=== PATIENT | female | born 1955 | race Caucasian/White ===

== ENCOUNTER 2017-01-12 06:37 | Day surgery (SDC) | payer MEDICARE, BC ==
--- NOTE | ~2017-01-12 | EGD ---
EGD REPORT [facility] [address] [address] NAME: ALANA GRANADOS : 53 STATUS : REG [facility] [place] PAT#: [id number] AGE: 61 ADM/REG DATE : 01/12/17 MR#: [id number] REPORT SERV DATE: 01/12/17 DICTATED BY: CARMELLA REAL DATE: 01/12/17 REPORT STATUS : Draft TRANSCRIBED BY: [facility] DATE: 01/12/17 Endoscopy Center Patient Name: Alana Granados Date of : 1955 Attending MD: CARMELLA REAL MD Procedure Date No Time: 01/12/2017 Procedure: Upper GI endoscopy Indications: Dysphagia, Follow-up of short segment Dougherty's esophagus; Aciphex 20mg bid. Patient Profile: Informed consent was obtained from the patient by me prior to the procedure. Risks, benefits, and alternatives were discussed including the risk of bleeding, perforation, infection, reaction to medicine, missed lesion, and cardiopulmonary complications. Referring MD: GIOVANNI SANTOS MD Medicines: Monitored Anesthesia Care Complications: No immediate complications. Procedure: Pre-Anesthesia Assessment: - ASA Grade Assessment: III - A patient with severe systemic disease. After obtaining informed consent, the endoscope was passed under direct vision. Throughout the procedure, the patient's blood pressure, pulse, and oxygen saturations were monitored continuously. The GIF [id number] was introduced through the mouth, and advanced to the second part of duodenum. The endoscope was withdrawn with careful examination all mucosal surfaces including retroflexion stomach. The upper GI endoscopy was accomplished without difficulty. The patient tolerated the procedure well. Findings: The examined duodenum was normal. The entire examined stomach was normal. There were esophageal mucosal changes secondary to established short-segment Dougherty's disease present at the gastroesophageal junction, no nodules or esophagitis. The maximum longitudinal extent of these mucosal changes was 1 cm in length two tongues. Biopsies were taken with a cold forceps for histology. The examined esophagus was normal. Biopsies were taken with a cold forceps for histology from mid and upper. 48F Savary dilation performed over guidewire held in antrum; minimal resistance to dilation; endoscopic visualization afterwards no mucosal breaks. Impression: - Normal examined duodenum. EGD REPORT [address] [address] NAME: ALANA GRANADOS : 53 STATUS : REG [facility]#: [id number] AGE: 61 ADM/REG DATE : 01/12/17 MR#: [id number] REPORT SERV DATE: 01/12/17 DICTATED BY: CARMELLA REAL DATE: 01/12/17 REPORT STATUS : Draft TRANSCRIBED BY: [employer] DATE: 01/12/17 - Normal stomach. - Esophageal mucosal changes secondary to established short-segment Dougherty's disease. Biopsied. - Normal esophagus. Biopsied. Dilated. Recommendation: - Patient has a contact number available for emergencies. The signs and symptoms of potential delayed complications were discussed with the patient. Return to normal activities tomorrow. Written discharge instructions were provided to the patient. - Regular diet. - Await pathology results. - Continue present medications, taper Aciphex to once daily prn. - Given dicyclomine for gut spasm. - Schd f/u visit 3 months. Procedure Code(s): --- Professional --- 92658, Esophagogastroduodenoscopy, flexible, transoral; with insertion of guide wire followed by passage of dilator(s) through esophagus over guide wire 10591, Esophagogastroduodenoscopy, flexible, transoral; with biopsy, single or multiple Diagnosis Code(s): --- Professional --- K22.70, Dougherty's esophagus without dysplasia R13.10, Dysphagia, unspecified CPT copyright 2013 [employer]. All rights reserved. The codes documented in this report are preliminary and upon ammunition assembly ii laborer review may be revised to meet current compliance requirements. CARMELLA REAL MD 01/12/2017 8:33 AM This report has been signed electronically. Number of Addenda: 0 Note Initiated On: 01/12/2017 8:15 AM Scope Withdrawal Time 0 hours 0 minutes 0 seconds [address] [id number]
[~2017-01-12 06:37] MED LIST: ACIPHEX PO; AGGRENOX PO; CELEXA40 MG PO; CLARIT10 PO; CRESTOR20 MG PO; GLUCOPHAGE1000 MG PO; MIRAPEX125 PO; NORV5 PO; ONGLYZA5 MG PO; P125 PO; PLAVIX PO; REQUIP5 PO; VALTREX5 PO; WELCHOL625 MG PO; ZESTRIL30 MG PO
== END 2017-01-12 23:59 | disposition home or self-care (01) ==
LOC: DMU 06:37
PROVIDERS: Internal Medicine Gastroenterology
PROC: 0D758ZZ Dilation of Esophagus, Via Natural or Artificial Opening Endoscopic (ICD-10-PCS; 2017-01-12)
PROC: 0DB48ZX Excision of Esophagogastric Junction, Via Natural or Artificial Opening Endoscopic, Diagnostic (ICD-10-PCS; principal; 2017-01-12 08:15)
PROC: 0DB58ZX Excision of Esophagus, Via Natural or Artificial Opening Endoscopic, Diagnostic (ICD-10-PCS; 2017-01-12 08:15)
DX: K22.70 Barrett's esophagus without dysplasia (principal); K21.9 Gastro-esophageal reflux disease without esophagitis; I10 Essential (primary) hypertension; E11.9 Type 2 diabetes mellitus without complications; E78.00 Pure hypercholesterolemia, unspecified; B17.2 Acute hepatitis E; D50.9 Iron deficiency anemia, unspecified; F32.9 Major depressive disorder, single episode, unspecified; F41.9 Anxiety disorder, unspecified; G40.909 Epilepsy, unspecified, not intractable, without status epilepticus; G47.33 Obstructive sleep apnea (adult) (pediatric); H91.90 Unspecified hearing loss, unspecified ear; Z88.5 Allergy status to narcotic agent; Z88.0 Allergy status to penicillin; Z87.891 Personal history of nicotine dependence; Z86.73 Personal history of transient ischemic attack (TIA), and cerebral infarction without residual deficits; Z90.89 Acquired absence of other organs; Z90.49 Acquired absence of other specified parts of digestive tract; Z90.710 Acquired absence of both cervix and uterus; Z79.84 Long term (current) use of oral hypoglycemic drugs; Z79.899 Other long term (current) drug therapy; Z98.890 Other specified postprocedural states
CPT/HCPCS: 82962; 88305